=== PATIENT | male | born 1990 | race Caucasian/White ===

== ENCOUNTER 2017-02-28 17:39 | Emergency (ER) | payer SELFPAY ==
[~2017-02-28] VITALS: Ht 170.1 cm; Wt 70.3 kg
[~2017-02-28 17:39] MED LIST: BENADRYL25 MG PO
== END 2017-02-28 18:21 | disposition home or self-care (01) ==
LOC: ED 17:39
DX: H61.22 Impacted cerumen, left ear (principal)

== ENCOUNTER 2017-09-28 23:05 | Emergency (ER) | payer SELFPAY ==
[~2017-09-28] VITALS: Ht 170.1 cm; Wt 72.6 kg
[2017-09-28] MEDS ORDERED: AMOXICILLIN500 M2 PO (23:46)
== END 2017-09-29 00:03 | disposition home or self-care (01) ==
LOC: ED 23:05
DX: H66.92 Otitis media, unspecified, left ear (principal)

== ENCOUNTER 2018-10-31 20:47 | Emergency (ER) | payer SELFPAY ==
[~2018-10-31] VITALS: Ht 170.1 cm; Wt 70.3 kg
[~2018-10-31 20:47] MED LIST changes: +AMOXICILLIN500 M2 PO
[2018-10-31] MEDS ORDERED: ALLEGRA-D 24 H1 EACH PO (21:30)
== END 2018-10-31 21:52 | disposition home or self-care (01) ==
LOC: ED 20:47
DX: J02.8 Acute pharyngitis due to other specified organisms (principal); J06.9 Acute upper respiratory infection, unspecified; F17.200 Nicotine dependence, unspecified, uncomplicated

== ENCOUNTER → 2020-03-28 | Outpatient (CLI) | payer SELFPAY ==
[~2020-03-28] MED LIST changes: +ALLEGRA-D 24 H1 EACH PO
== END | disposition home or self-care (01) ==
LOC: COVID19 13:44
PROVIDERS: ATTEND Student in an Organized Health Care Education/Training Program
DX: Z20.828 Contact with and (suspected) exposure to other viral communicable diseases (principal)

== ENCOUNTER 2020-10-14 06:42 | Emergency (ER) | payer SELFPAY ==
[2020-10-14] MEDS ORDERED: PREDNISONE50 MG PO (08:00)
== END 2020-10-14 08:08 | disposition home or self-care (01) ==
LOC: ED 06:42
DX: S46.911A Strain of unspecified muscle, fascia and tendon at shoulder and upper arm level, right arm, initial encounter (principal); M54.2 Cervicalgia; Z79.899 Other long term (current) drug therapy; F17.200 Nicotine dependence, unspecified, uncomplicated; X58.XXXA Exposure to other specified factors, initial encounter; Y93.89 Activity, other specified; Y92.89 Other specified places as the place of occurrence of the external cause; Y99.8 Other external cause status

== ENCOUNTER 2020-10-17 01:47 | Emergency (ER) | payer SELFPAY ==
[~2020-10-17] VITALS: Ht 170.1 cm; Wt 72.6 kg
[~2020-10-17 01:47] MED LIST changes: +PREDNISONE50 MG PO
[2020-10-17] MEDS ORDERED: METHOCARBAMOL750 M1 PO (02:10)
== END 2020-10-17 02:40 | disposition home or self-care (01) ==
LOC: ED 01:47
DX: S16.1XXA Strain of muscle, fascia and tendon at neck level, initial encounter (principal); S29.012A Strain of muscle and tendon of back wall of thorax, initial encounter; M75.21 Bicipital tendinitis, right shoulder; Z79.899 Other long term (current) drug therapy; Z98.890 Other specified postprocedural states; X58.XXXA Exposure to other specified factors, initial encounter; Y93.9 Activity, unspecified; Y92.89 Other specified places as the place of occurrence of the external cause; Y99.8 Other external cause status

== ENCOUNTER 2020-10-21 21:43 | Emergency (ER) | payer SELFPAY ==
[~2020-10-21] VITALS: Ht 170.1 cm; Wt 72.6 kg
[~2020-10-21 21:43] MED LIST changes: +METHOCARBAMOL750 M1 PO
[2020-10-21] MEDS ORDERED: CYCLOBENZAPRINE10 MG PO (23:20)
[2020-10-21] MEDS ORDERED: PREDNISONE20 M1 PO (23:20)
== END 2020-10-21 23:23 | disposition home or self-care (01) ==
LOC: ED 21:43
DX: M54.12 Radiculopathy, cervical region (principal); Z79.899 Other long term (current) drug therapy

== ENCOUNTER 2020-10-27 13:53 | Emergency (ER) | payer SELFPAY ==
[~2020-10-27] VITALS: Wt 72.6 kg
[~2020-10-27 13:53] MED LIST changes: +CYCLOBENZAPRINE10 MG PO; +PREDNISONE20 M1 PO
[2020-10-27 14:39] LABS: BASO % 0.6 % (0.0-1.0); EOS # 0.1 10*3/uL (0.0-0.4); EOS % 0.9 % (1.0-4.0); HEMATOCRIT 52.8 % (42.0-52.0); LYMPH # 2.3 10*3/uL (1.3-4.4); LYMPH % 33.9 % (27.0-41.0); MEAN CELL VOLUME 95.7 fl (80.0-94.0); MEAN CORPUSCULAR HGB 31.9 pg (27.0-31.0); MEAN CORPUSCULAR HGB CONC 33.3 g/dl (33.0-37.0); MEAN PLATELET VOLUME 9.7 fl (9.6-12.3); MONO # 0.6 10*3/uL (0.1-1.0); MONO % 8.5 % (3.0-9.0); NEUT # 3.8 10*3/uL (2.3-7.9); NEUT % 55.5 % (47.0-73.0); PLATELET COUNT AUTOMATED 228 10*3/uL (130-400); RED BLOOD COUNT 5.52 10*6/uL (4.50-5.90); RED CELL DISTRI WIDTH 12.6 % (0-14.5); WHITE BLOOD COUNT 6.8 10*3/uL (4.8-10.8)
[2020-10-27 14:56] LABS: ALBUMIN 4.7 gm/dl (3.1-4.5); ALKALINE PHOSPHATASE 41 U/L (45-117); BUN 23 mg/dl (7-24); CHLORIDE 102 mmol/L (98-107); CREATININE 1.06 mg/dL (0.70-1.30); POTASSIUM 4.1 mmol/L (3.5-5.1); SGOT/AST 11 IU/L (3-35); SGPT/ALT 20 U/L (12-78); SODIUM 136 mmol/L (136-145); TOTAL PROTEIN 8.4 gm/dL (6.4-8.2)
[2020-10-27 14:58] LABS: TROPONIN I < 0.015 ng/ml (<0.045)
[2020-10-27] MEDS ORDERED: CYCLOBENZAPRINE5 M3 PO (18:30)
[2020-10-27] MEDS ORDERED: Motrin,Rufen800 MG PO (18:30)
== END 2020-10-27 18:43 | disposition home or self-care (01) ==
LOC: ED 13:53
PROVIDERS: Physician Assistant
DX: M25.511 Pain in right shoulder (principal); R00.0 Tachycardia, unspecified; M54.2 Cervicalgia; F17.200 Nicotine dependence, unspecified, uncomplicated; Z79.899 Other long term (current) drug therapy; Z98.890 Other specified postprocedural states; X50.3XXA Overexertion from repetitive movements, initial encounter; Y93.89 Activity, other specified; Y92.89 Other specified places as the place of occurrence of the external cause; Y99.8 Other external cause status

== ENCOUNTER 2021-08-04 22:56 | Emergency (ER) | payer OTHER ==
[~2021-08-04] VITALS: Ht 167.6 cm; Wt 68.0 kg
[~2021-08-04 22:56] MED LIST changes: +CYCLOBENZAPRINE5 M3 PO; +Motrin,Rufen800 MG PO
[2021-08-05] MEDS ORDERED: NAPROXEN250 MG PO (23:12)
== END 2021-08-05 03:32 | disposition left against medical advice (07) ==
LOC: ED 22:56
DX: Z53.21 Procedure and treatment not carried out due to patient leaving prior to being seen by health care provider (principal)

== ENCOUNTER 2021-08-05 22:25 | Emergency (ER) | payer OTHER ==
[~2021-08-05] VITALS: Ht 167.6 cm; Wt 68.0 kg
[2021-08-05] MEDS ORDERED: NAPROXEN250 MG PO (23:12)
== END 2021-08-05 23:24 | disposition home or self-care (01) ==
LOC: ED 22:25
DX: S40.011A Contusion of right shoulder, initial encounter (principal); W17.89XA Other fall from one level to another, initial encounter; Y93.89 Activity, other specified; Y92.89 Other specified places as the place of occurrence of the external cause; Y99.8 Other external cause status

== ENCOUNTER 2021-12-07 03:47 | Emergency (ER) | payer SELFPAY ==
[~2021-12-07] VITALS: Ht 172.7 cm; Wt 63.5 kg
[~2021-12-07 03:47] MED LIST changes: +NAPROXEN250 MG PO
[2021-12-07] MEDS ORDERED: EC-NAPROXEN375 MG PO (04:17)
[2021-12-07] MEDS ORDERED: AMOXICILLIN500 M2 PO (04:17)
== END 2021-12-07 04:30 | disposition home or self-care (01) ==
LOC: ED 03:47
DX: K04.7 Periapical abscess without sinus (principal)

== ENCOUNTER 2023-11-19 19:27 | Emergency (ER) | payer OTHER ==
[~2023-11-19] VITALS: Ht 170.1 cm; Wt 72.6 kg
[~2023-11-19 19:27] MED LIST changes: +EC-NAPROXEN375 MG PO
[2023-11-19] MEDS ORDERED: Tdap Vaccine 0.5 ML SYR (Adult Vaccine) IM ONE (19:50)
[2023-11-19] MEDS ORDERED: Lidocaine Hydrochloride 2% 10 ML AMP SC ONE (19:50)
== END 2023-11-19 20:23 | disposition home or self-care (01) ==
LOC: ED 19:27
DX: S41.111A Laceration without foreign body of right upper arm, initial encounter (principal); Z98.890 Other specified postprocedural states; W20.8XXA Other cause of strike by thrown, projected or falling object, initial encounter; Y93.89 Activity, other specified; Y92.89 Other specified places as the place of occurrence of the external cause; Y99.0 Civilian activity done for income or pay

== ENCOUNTER 2023-11-26 16:11 | Emergency (ER) | payer OTHER | END 2023-11-26 16:29 | disposition home or self-care (01) | LOC: ED 16:11 | DX: S51.011D Laceration without foreign body of right elbow, subsequent encounter (principal); Z98.890 Other specified postprocedural states; X58.XXXD Exposure to other specified factors, subsequent encounter ==

== ENCOUNTER 2023-11-29 15:37 | Emergency (ER) | payer OTHER ==
[2023-11-29] MEDS ORDERED: CEPHALEXIN500 M1 PO (15:48)
== END 2023-11-29 15:45 | disposition home or self-care (01) ==
LOC: ED 15:37
DX: T81.30XA Disruption of wound, unspecified, initial encounter (principal); Z98.890 Other specified postprocedural states; Y83.8 Other surgical procedures as the cause of abnormal reaction of the patient, or of later complication, without mention of misadventure at the time of the procedure; Y92.89 Other specified places as the place of occurrence of the external cause

== ENCOUNTER 2024-05-09 10:32 | Emergency (ER) | payer SELFPAY ==
[~2024-05-09] VITALS: Ht 167.6 cm; Wt 72.6 kg
[~2024-05-09 10:32] MED LIST changes: +CEPHALEXIN500 M1 PO
[2024-05-09] MEDS ORDERED: AMOXICILLIN500 M3 PO (11:23)
== END 2024-05-09 11:34 | disposition home or self-care (01) ==
LOC: ED 10:32
DX: J02.9 Acute pharyngitis, unspecified (principal); Z98.890 Other specified postprocedural states

== ENCOUNTER 2024-05-11 12:41 | Emergency (ER) | payer SELFPAY ==
[~2024-05-11] VITALS: Ht 167.6 cm; Wt 72.6 kg
[~2024-05-11 12:41] MED LIST changes: +AMOXICILLIN500 M3 PO
== END 2024-05-11 13:08 | disposition home or self-care (01) ==
LOC: ED 12:41
DX: J02.9 Acute pharyngitis, unspecified (principal); Z02.79 Encounter for issue of other medical certificate

== ENCOUNTER 2024-05-24 21:02 | Emergency (ER) | payer OTHER ==
[~2024-05-24] VITALS: Ht 167.6 cm; Wt 68.0 kg
[2024-05-24] MEDS ORDERED: CYCLOBENZAPRINE10 MG PO (23:18)
== END 2024-05-24 23:28 | disposition home or self-care (01) ==
LOC: ED 21:02
DX: S46.911A Strain of unspecified muscle, fascia and tendon at shoulder and upper arm level, right arm, initial encounter (principal); F17.200 Nicotine dependence, unspecified, uncomplicated; Z98.890 Other specified postprocedural states; X50.0XXA Overexertion from strenuous movement or load, initial encounter; Y93.89 Activity, other specified; Y92.89 Other specified places as the place of occurrence of the external cause; Y99.8 Other external cause status

== ENCOUNTER 2024-10-27 19:15 | Emergency (ER) | payer SELFPAY ==
[~2024-10-27] VITALS: Ht 167.6 cm; Wt 70.3 kg
[2024-10-27] MEDS ORDERED: AMOX-CLAV 875-1 EACH PO (22:00)
[2024-10-27] MEDS ORDERED: Amoxicillin/Clavulanate Pota 875 MG TAB PO ONE (22:00)
== END 2024-10-27 21:28 | disposition home or self-care (01) ==
LOC: ED 19:15
DX: J32.9 Chronic sinusitis, unspecified (principal); Z98.890 Other specified postprocedural states; Z20.822 Contact with and (suspected) exposure to COVID-19